=== PATIENT | male | born 1950 | race Caucasian/White ===

== ENCOUNTER 2016-08-03 13:19 | Inpatient (IN) ==
[2016-08-04 05:47] LABS: INR 1.3; Prothrombin Time 13.8 Seconds (9.4-12.1)
[2016-08-04 05:49] LABS: Basophils % 0.6 %; Eosinophils # 0.2 K/mcL (0.0-0.6); Eosinophils % 2.8 %; Hematocrit 36.9 % (37.5-50.1); Hemoglobin 12.9 g/dL (12.9-16.9); Immature Granulocytes % 0.3 % (0-4); Lymphocytes # 1.4 K/mcL (0.6-4.6); Lymphocytes % 20.8 %; Mean Corpuscular Hemoglobin 29.9 pg (28.0-33.3); Mean Corpuscular Volume 85.6 fL (83.0-100.0); Mean Platelet Volume 10.6 fL (9.4-12.4); Monocytes # 0.7 K/mcL (0.0-1.3); Monocytes % 10.2 %; Neutrophils # 4.4 K/mcL (1.6-8.9); Platelet Count 137 K/mcL (140-400); Red Blood Count 4.31 M/mcL (4.19-5.50); Red Cell Distribution Width 12.1 % (11.5-14.5); Segmented Neutrophils % 65.3 %
[2016-08-04 06:01] LABS: BUN/Creatinine Ratio 17 (6-26); Blood Urea Nitrogen 13 mg/dL (8-26); Calcium 9.6 mg/dL (8.6-10.8); Carbon Dioxide 19 mEq/L (19-29); Chloride 107 mEq/L (98-109); Glucose 97 mg/dL (70-99); Osmolality,Calculated 288 (280-300); Potassium 4.1 mEq/L (3.5-4.5); Sodium 139 mEq/L (136-145); eGFR For African Americans > 60 (> 60); eGFR For Non-African Americans > 60 (> 60)
[2016-08-04] MEDS: Lisinopril-HCTZ 20-12.5mg TABLET PO SCH (09:23)
--- NOTE | 2016-08-04 13:33 | Internal Med History&Physical ---
Date of Encounter: 08/04/16 Time of Encounter: 13:30 Assessment and Plan (1) CVA (cerebral vascular accident) Current visit: Yes Status: Acute Patient small right hemorrhage 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 (2) Hypertension Current visit: No Status: Chronic Qualifiers: Hypertension type: essential hypertension Qualified Code(s): I10 - Essential (primary) hypertension (3) Hyperlipidemia Current visit: No Status: Acute Noted Qualifiers: Qualified Code(s): E78.5 - Hyperlipidemia, unspecified Internal Medicine - H&P: HPI Chief complaint: Patient was brought here for rehabilitation status post CVA Admitted From: Hospital to Hospital Transfer Plans for Post Hospital Care: Home History of present illness: Mr. Ross is a 66 year old male Patient was walking his dog when he collapsed due to illness of his left side. He fell twice called to his called the squad. He was taken to [facility] where he was evaluated for CVA noted to have some intraparenchymal bleeding transferred to [facility]. He was stabilized there and followed up and transferred here for re- Past Med Surg Social Fam HX - Past Medical History Medical history: hyperlipidemia, hypertension Psychiatric history: no psych history - Past Surgical History Surgical History: IVC Filter - Social History Smoking Status: Former smoker Smokeless Tobacco Status: No Alcohol use: occasionally Drug use: none Internal Medicine - H&P: Meds Atorvastatin Calcium [Lipitor] 20 mg PO DAILY 08/03/16 [History] Cyclobenzaprine [Flexeril] 10 mg PO HS PRN 08/03/16 [History] Lisinopril-HCTZ 20-12.5 [Prinzide 20-12.5] 1 each PO DAILY 08/03/16 [History] Allergies No Known Allergies Allergy (Verified 08/03/16 18:15) All Systems PM: A 10-system review of systems was performed and is negative for pertinent findings except as documented above in the HPI. - Constitutional Vitals: Temp Pulse Resp BP Pulse Ox 98.3 F 120 18 124/80 96 08/04/16 11:48 08/04/16 11:48 08/04/16 11:48 08/04/16 11:48 08/04/16 11:48 General appearance: Present: cooperative, pleasant - Head Head exam: Present: atraumatic, normal inspection, normocephalic - Neck Neck exam general surgery: Present: supple, trachea midline. Absent: lymphadenopathy - Respiratory Respiratory exam: Present: CTAB. Absent: accessory muscle use, rales, rhonchi, wheezes - Cardiovascular Cardiovascular exam: Present: RRR, +S1, +S2. Absent: diastolic murmur, gallop, rubs, systolic murmur Internal Med - H&P Results - Labs CBC & Chem 7: 08/07/16 05:20 08/07/16 05:20 Labs: Short CBC 08/04/16 Range/Units 05:00 WBC 6.8 (4.3-11.1) K/mcL Hgb 12.9 (12.9-16.9) g/dL Hct 36.9 L (37.5-50.1) % Plt Count 137 L (140-400) K/mcL Neutrophils # 4.4 (1.6-8.9) K/mcL BMP 08/04/16 05:00 Sodium 139 Potassium 4.1 Chloride 107 Carbon Dioxide 19 BUN 13 Creatinine 0.75 Glucose 97 Calcium 9.6 Lab is stable
[2016-08-05] MEDS: Lisinopril-HCTZ 20-12.5mg TABLET PO SCH (08:35)
--- NOTE | 2016-08-05 11:40 | Internal Med Progress Note ---
Date of Encounter: 08/05/16 Time of Encounter: 11:38 - Assessment and plan (1) CVA (cerebral vascular accident) Current Visit: Yes Status: Acute Assessment and plan: Left-sided flaccid. PTOT to work on gait, balance, transfer, strength endurance in improving activity of daily living. 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 (2) Hypertension Current Visit: Yes Status: Chronic Qualifiers: Hypertension type: essential hypertension Qualified Code(s): I10 - Essential (primary) hypertension - Time Spent With Patient less than 15 minutes - Subjective Interval history: No new voiced complaint. Saline left-sided flaccid denies shortness of breath. No chest pain. No headache. Mild constipation. Good appetite. - Constitutional Vitals: Temp Pulse Resp BP Pulse Ox 97.6 F 93 18 111/77 95 08/05/16 07:10 08/05/16 07:10 08/05/16 07:10 08/05/16 07:10 08/05/16 07:10 General appearance: Present: cooperative, A&O X 3, pleasant, no acute distress - Respiratory Respiratory exam: Present: CTAB. Absent: accessory muscle use, rales, rhonchi, wheezes - Cardiovascular Cardiovascular exam: Present: RRR, +S1, +S2. Absent: diastolic murmur, gallop, rubs, systolic murmur - GI/Abdominal GI/Abdominal exam: Present: normal bowel sounds, soft, no peritoneal signs. Absent: distended, tenderness - Extremities Exam Extremities exam: Absent: calf tenderness, pedal edema - Neurological Exam Neurological exam: Present: abnormal gait, alert, oriented X3, facial droop Additional comments: Left sided weakness. Both upper and lower extremities Internal Medicine: Result - Labs CBC & Chem 7: 08/04/16 05:00 08/04/16 05:00 - ABG Interpretation ABG results: PT/INR, D-dimer PT 13.8 Seconds (9.4-12.1) H 08/04/16 05:00 Consult Discharge Plan - Plan Referrals: Raz Phillip [Primary Care Provider] -
[2016-08-06] MEDS: Lisinopril-HCTZ 20-12.5mg TABLET PO SCH (09:26)
--- NOTE | 2016-08-06 11:00 | Internal Med Progress Note ---
Date of Encounter: 08/06/16 Time of Encounter: 10:58 - Assessment and plan (1) CVA (cerebral vascular accident) Current Visit: Yes Status: Acute Assessment and plan: Left-sided flaccid. PTOT to work on gait, balance, transfer, strength endurance in improving activity of daily living. 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 (2) Hypertension Current Visit: Yes Status: Chronic Qualifiers: Hypertension type: essential hypertension Qualified Code(s): I10 - Essential (primary) hypertension - Subjective Interval history: No new voiced complaint. Same left-sided flaccid denies shortness of breath. No chest pain. No headache. Mild constipation. Good appetite. - Constitutional Vitals: Temp Pulse Resp BP Pulse Ox 98.7 F 94 16 113/69 96 08/06/16 07:08 08/06/16 07:08 08/06/16 07:08 08/06/16 07:08 08/06/16 07:08 General appearance: Present: cooperative, A&O X 3, pleasant, no acute distress - Respiratory Respiratory exam: Present: CTAB. Absent: accessory muscle use, rales, rhonchi, wheezes - Cardiovascular Cardiovascular exam: Present: RRR, +S1, +S2. Absent: diastolic murmur, gallop, rubs, systolic murmur - GI/Abdominal GI/Abdominal exam: Present: normal bowel sounds, soft, no peritoneal signs. Absent: distended, tenderness - Neurological Exam Additional comments: Left-sided paresis Internal Medicine: Result - Labs CBC & Chem 7: 08/04/16 05:00 08/04/16 05:00 - ABG Interpretation ABG results: PT/INR, D-dimer PT 13.8 Seconds (9.4-12.1) H 08/04/16 05:00 Consult Discharge Plan - Plan Referrals: Raz Phillip [Primary Care Provider] -
[2016-08-07 05:56] LABS: Basophils # 0.1 K/mcL (0.0-0.2); Basophils % 0.7 %; Eosinophils # 0.3 K/mcL (0.0-0.6); Eosinophils % 4.1 %; Hematocrit 36.5 % (37.5-50.1); Hemoglobin 12.6 g/dL (12.9-16.9); Immature Granulocytes % 0.7 % (0-4); Lymphocytes # 1.5 K/mcL (0.6-4.6); Lymphocytes % 22.3 %; Mean Corpuscular HGB Conc 34.5 g/dL (31.6-35.5); Mean Corpuscular Hemoglobin 29.9 pg (28.0-33.3); Mean Corpuscular Volume 86.7 fL (83.0-100.0); Mean Platelet Volume 9.6 fL (9.4-12.4); Monocytes # 0.8 K/mcL (0.0-1.3); Monocytes % 12.1 %; Neutrophils # 4.1 K/mcL (1.6-8.9); Platelet Count 191 K/mcL (140-400); Red Blood Count 4.21 M/mcL (4.19-5.50); Red Cell Distribution Width 12.1 % (11.5-14.5); Segmented Neutrophils % 60.1 %
[2016-08-07 05:57] LABS: BUN/Creatinine Ratio 23 (6-26); Blood Urea Nitrogen 18 mg/dL (8-26); Calcium 9.7 mg/dL (8.6-10.8); Carbon Dioxide 22 mEq/L (19-29); Chloride 104 mEq/L (98-109); Glucose 95 mg/dL (70-99); Osmolality,Calculated 288 (280-300); Potassium 4.6 mEq/L (3.5-4.5); Sodium 138 mEq/L (136-145); eGFR For African Americans > 60 (> 60); eGFR For Non-African Americans > 60 (> 60)
[2016-08-07] MEDS: Lisinopril-HCTZ 20-12.5mg TABLET PO SCH (08:03)
--- NOTE | 2016-08-07 13:29 | Internal Med Progress Note ---
Date of Encounter: 08/07/16 Time of Encounter: 13:27 - Assessment and plan (1) CVA (cerebral vascular accident) Current Visit: Yes Status: Acute Assessment and plan: Patient's here for CVA with left hemiparesis. The staff also thinks there may be some mild cognitive changes 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 (2) Hypertension Current Visit: Yes Status: Chronic Qualifiers: Hypertension type: essential hypertension Qualified Code(s): I10 - Essential (primary) hypertension (3) Hyperlipidemia Current Visit: Yes Status: Acute Assessment and plan: Noted Qualifiers: Qualified Code(s): E78.5 - Hyperlipidemia, unspecified - Time Spent With Patient less than 15 minutes - Subjective Interval history: Patient's working with therapists. Still has left hemiparesis he has finger Brubeck today. So perhaps with time we will get some function back. - Constitutional Vitals: Temp Pulse Resp BP Pulse Ox 97.6 F 97 18 112/76 97 08/07/16 07:22 08/07/16 07:22 08/07/16 07:22 08/07/16 10:31 08/07/16 10:31 General appearance: Present: cooperative, A&O X 3, pleasant, no acute distress - Head Head exam: Present: atraumatic, normal inspection, normocephalic - Neck Neck exam general surgery: Present: supple, trachea midline. Absent: lymphadenopathy - Respiratory Respiratory exam: Present: CTAB. Absent: accessory muscle use, rales, rhonchi, wheezes - Cardiovascular Cardiovascular exam: Present: RRR, +S1, +S2. Absent: diastolic murmur, gallop, rubs, systolic murmur Internal Medicine: Result - Labs CBC & Chem 7: 08/07/16 05:20 08/07/16 05:20 Labs: Short CBC 08/07/16 Range/Units 05:20 WBC 6.9 (4.3-11.1) K/mcL Hgb 12.6 L (12.9-16.9) g/dL Hct 36.5 L (37.5-50.1) % Plt Count 191 (140-400) K/mcL Neutrophils # 4.1 (1.6-8.9) K/mcL BMP 08/07/16 05:20 Sodium 138 Potassium 4.6 H Chloride 104 Carbon Dioxide 22 BUN 18 Creatinine 0.78 Glucose 95 Calcium 9.7 Lab is stable - ABG Interpretation ABG results: PT/INR, D-dimer PT 13.8 Seconds (9.4-12.1) H 08/04/16 05:00 - VTE Documentation of Mechanical Device: Graduated compression elastic hosiery Consult Discharge Plan - Plan Referrals: Raz Phillip [Primary Care Provider] -
[2016-08-08] MEDS: Lisinopril-HCTZ 20-12.5mg TABLET PO SCH (09:00)
--- NOTE | 2016-08-08 14:35 | Internal Med Progress Note ---
Date of Encounter: 08/08/16 Time of Encounter: 14:33 - Assessment and plan (1) CVA (cerebral vascular accident) Current Visit: Yes Status: Acute Assessment and plan: The reason for the admission was a CVA of ischemic nature 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 (2) Hypertension Current Visit: Yes Status: Chronic Assessment and plan: Blood pressure is well controlled Qualifiers: Hypertension type: essential hypertension Qualified Code(s): I10 - Essential (primary) hypertension (3) Hyperlipidemia Current Visit: Yes Status: Acute Qualifiers: Qualified Code(s): E78.5 - Hyperlipidemia, unspecified - Time Spent With Patient less than 15 minutes - Subjective Interval history: Patient's working with therapists. Still has left hemiparesis . Continuing to work with therapy So perhaps with time we will get some function back. - Constitutional Vitals: Temp Pulse Resp BP Pulse Ox 97.7 F 96 16 105/72 95 08/08/16 07:13 08/08/16 07:13 08/08/16 07:13 08/08/16 07:13 08/08/16 07:13 General appearance: Present: cooperative, A&O X 3, pleasant, no acute distress - Head Head exam: Present: atraumatic, normal inspection, normocephalic - Neck Neck exam general surgery: Present: supple, trachea midline. Absent: lymphadenopathy - Cardiovascular Cardiovascular exam: Present: RRR, +S1, +S2. Absent: diastolic murmur, gallop, rubs, systolic murmur Internal Medicine: Result - Labs CBC & Chem 7: 08/07/16 05:20 08/07/16 05:20 Labs: Lab appears to be stated - ABG Interpretation ABG results: PT/INR, D-dimer PT 13.8 Seconds (9.4-12.1) H 08/04/16 05:00 - VTE Documentation of Mechanical Device: Graduated compression elastic hosiery Consult Discharge Plan - Plan Referrals: Raz Phillip [Primary Care Provider] -
[2016-08-09] MEDS: Lisinopril-HCTZ 20-12.5mg TABLET PO SCH (08:41)
--- NOTE | 2016-08-09 12:28 | Physical Med Progress Note ---
Date of Encounter: 08/09/16 Time of Encounter: 12:20 Physical Medicine-PN: Subj Interval history: PMR PCC note Mr. Ross is Alex for upper body dressing, min -mod A for lower body dressing. He continues to have some increased tone in the left lower limb. Nursing will continue to reposition the left leg in extension to diminish his hamstring contraction. No active movement in the left upper limb. E-stim initiated for left upper limb without any significant carry over. He is doing well cognitively. No deficits. He has a flat affect. He has good coping strategies. He denies any depression. Plan to begin use of malcom walker today. Patient is SBA/CGA for sitting at the edge of mat. Patient lives in a 2 story home, first floor bed bath with 2 step entry. Would recommend contstruction of a ramp. Plan for 4 weeks of intensive PT/OT/ST/TR. NICHOLAS 08/30/16. Will plan a family meeting. - Constitutional Vitals: Vital Signs Temp Pulse Resp BP Pulse Ox 08/09/16 07:07 98.0 F 85 18 113/66 96 08/08/16 19:18 98.0 F 105 16 99/66 95 Intake and Output 08/08/16 08/09/16 08/09/16 23:59 07:59 15:59 Intake Total 200 / 200 520 / 520 Output Total 550 / 550 Balance -350 / -350 520 / 520 Intake: Oral 200 / 200 520 / 520 Output: Urine 550 / 550 Other: Meal Breakfast Percent of Meal Consumed 100% Stool Size Moderate Stool Consistency soft formed Stool Color Brown # Voids 1 # Bowel Movements 1 Physical Medicine-PN: Obj Data - Labs CBC & Chem 7: 08/07/16 05:20 08/07/16 05:20 - ABG Interpretation ABG results: PT/INR, D-dimer PT 13.8 Seconds (9.4-12.1) H 08/04/16 05:00 - VTE Documentation of Mechanical Device: Graduated compression elastic hosiery Consult Discharge Plan - Plan Referrals: Raz Phillip [Primary Care Provider] -
--- NOTE | 2016-08-09 13:41 | Physcial Medicine-Consult Note ---
Date of Encounter: 08/09/16 Time of Encounter: 13:37 Physical Medicine - AP (1) CVA (cerebral vascular accident) Status: Acute Assessment and plan: 1. Mr. Ross will continue with intensive PT/OT/TR. He has no cognitive deficits. We will continue to work on gait, transfers, ADLs and safety. He will require 4 weeks of intensive therapy to address his needs. He has been ambulating well with a malcom walker. We will continue with estim to the left upper limb. Continue with shoulder sling for support of the shoulder joint. Code(s): I63.9 - Cerebral infarction, unspecified SNOMED Code(s): 107849661 Physical Medicine - HPI - Data of Consult Consult date: 08/09/16 Requesting Physician: Daquan Dunn DO Primary Care Provider: Raz Phillip - Consult Narrative Reason for consult: CVA History of present illness: Mr. Ross is a 66 year old male with a past medical history significant for HTN and hyperlipidemia who was walking his dog on 07/28/16 when he developed acute onset of left sided weakness. He subsequently fell, striking his head with possible trauma to the head. He attempted to stand a second time and fell again. Patient was transferred to [facility] where an initial head CT revealed an acute right frontal IPH. MRI of the brain revealed hyperacute intraparenchymal hematoma within the right frontal lobe with surrounding vasogenic edema. He was stabilized and transferred for inpatient rehabilitation for his continued left hemiplegia. CC: Daquan Dunn DO Past Med Surg Social Fam HX - Past Medical History Medical history: hyperlipidemia, hypertension Psychiatric history: no psych history - Past Surgical History Surgical History: IVC Filter - Social History Smoking Status: Former smoker Smokeless Tobacco Status: No Alcohol use: occasionally Drug use: none Current living situation: Home - Independent Activity Level: Independent ambulation, Very active Medications and Allergies Atorvastatin Calcium [Lipitor] 20 mg PO DAILY 08/03/16 [History] Cyclobenzaprine [Flexeril] 10 mg PO HS PRN 08/03/16 [History] Lisinopril-HCTZ 20-12.5 [Prinzide 20-12.5] 1 each PO DAILY 08/03/16 [History] Allergies No Known Allergies Allergy (Verified 08/03/16 18:15) - Constitutional Constitutional: Absent: anorexia, frequent falls - Respiratory Respiratory: Absent: cough, dyspnea, dyspnea on exertion - Gastrointestinal Gastrointestinal: Absent: abdominal pain, dyspepsia - Genitourinary Genitourinary: urinary frequency - Musculoskeletal Musculoskeletal: Present: abnormal gait. Absent: radiating pain into limb - Neurological Neurological: Present: abnormal gait. Absent: headache(s) - Psychiatric Psychiatric: Absent: depression Physical Medicine - Exam - Constitutional Vitals: Temp Pulse Resp BP Pulse Ox 98.0 F 85 18 113/66 96 08/09/16 07:07 08/09/16 07:07 08/09/16 07:07 08/09/16 07:07 08/09/16 07:07 General appearance: average body habitus Exam: Patient is alert and oriented to person, place and date. He is able to follow multistep commands without difficulty. - Respiratory Respiratory exam: Present: CTAB - Cardiovascular Cardiovascular exam: Present: RRR - GI/Abdominal GI/Abdominal exam: Present: normal bowel sounds, soft. Absent: tenderness - Extremities Exam Extremities exam: Present: normal inspection. Absent: calf tenderness - Neurological Exam Additional comments: HEENT exam reveals a left facial droop. Tongue deviates to the right. Upper limb reflexes are 2s. Lower limb reflexes are 2+. Motor strength testing in the right upper and lower limbs are 5/5. Left upper limb motor strength reveals absent shoulder shrug, SA/EF/EE 0/5. HI 3/5. Left lower limb reveals HE 4/5, DE LEÓN 1/5, all other motor strength 0/5. Physical Medicine - Results - Labs CBC & Chem 7: 08/07/16 05:20 08/07/16 05:20 Consult Discharge Plan - Plan Referrals: Raz Phillpi [Primary Care Provider] -
--- NOTE | 2016-08-09 15:31 | Psychological Evaluation ---
Date of Encounter: 08/09/16 Time of Encounter: 11:30 History of Present Illness History of present illness: Mr. Ross is a 66 year old male who reported that while on a walk with his [place] in [place], he noticed he was having problems walking and fell twice. He called his who called the squad. He was taken to a local hospital and found to have an intraparenchymal hemorrhage. He was transferred to [facility] where he was stabilized. He has been admitted to [facility] for inpatient rehabilitation. He was seen on this date to assess his current cognitive and emotional functioning. Past Medical History Medical history: Significant for HTN and hyperlipidemia. - Psychiatric History Additional Psychiatric History: There is no history of psychiatric hospitalization or mental health counseling. There is no history of suicidal ideation or past attempts. There is no family history of psychiatric or mental health disorders. Home Medications and Allergies Atorvastatin Calcium [Lipitor] 20 mg PO DAILY 08/03/16 [History] Cyclobenzaprine [Flexeril] 10 mg PO HS PRN 08/03/16 [History] Lisinopril-HCTZ 20-12.5 [Prinzide 20-12.5] 1 each PO DAILY 08/03/16 [History] Allergies No Known Allergies Allergy (Verified 08/03/16 18:15) Social History - Social History Social History: Mr. Ross and his have been for 44 years. They have two children ( son age 41; daughter age 38). Mr. Ross is retired. He worked in the [employer] field for 38 years. He retired two years ago. 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 During his typical day , he feeds the horses, cleans the stalls, does repairs around the farm and runs errands. For leisure, he enjoys hiking and camping. His social support system consists of his , his children, his friends and relatives. He belongs to a horse club and reported that he enjoys being active. - Tobacco Use Smoking Status: Former smoker - Alcohol Use Alcohol Use: occasionally (There is no history of alcohol abuse or treatment.) Cognitive/Emotional Assessment - Cognitive Ability Additional Findings: Mr. Ross was alert, attentive and fully oriented. His speech was clear, fluent and effective. Thought processes were logical, coherent and goal- directed. There were no signs of delusional ideation or perceptual disturbances. Mr. Ross performed within the normal range on measures of attention/concentration, sentence repetition, confrontational naming, auditory comprehension and simple arithmetic. He also performed within the normal range on measures of verbal reasoning, social judgment and delayed verbal recall. He had no difficulty with encoding, storage or retrieval of new information. - Emotional Status Additional Findings: Mr. Ross was cooperative and friendly. He displayed appropriate eye contact. Affect was restricted and facial expressions were flat. He described his mood as "OK" but presented as somber. He reported "I'm not grumpy" and denied any changes in his emotional control. He denied feeling depressed, anxious or irritable. He acknowledged some concerns about the expected recovery from a stroke and reported that he hopes he can resume his previous level of activity on his farm. Assessment & Plan - Diagnosis (1) Other specified mental disorders due to known physiological condition - Treatment Plan Treatment Plan/Recommendations: Will follow Mr. Ross to address emotional adjustment issues as needed while he is an inpatient at [facility] and will provide educational information regarding stroke recovery and setting realistic expectations. Procedures - Session Time Session Start Time: 11:30 Session Stop Time: 12:00
[2016-08-10] MEDS: Lisinopril-HCTZ 20-12.5mg TABLET PO SCH (08:36)
--- NOTE | 2016-08-10 13:34 | Internal Med Progress Note ---
Date of Encounter: 08/10/16 Time of Encounter: 13:32 - Assessment and plan (1) CVA (cerebral vascular accident) Current Visit: Yes Status: Acute Assessment and plan: Patient's here because of his CVA 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 (2) Hypertension Current Visit: No Status: Chronic Qualifiers: Hypertension type: essential hypertension Qualified Code(s): I10 - Essential (primary) hypertension (3) Hyperlipidemia Current Visit: No Status: Acute Assessment and plan: Noted Qualifiers: Qualified Code(s): E78.5 - Hyperlipidemia, unspecified - Time Spent With Patient less than 15 minutes - Subjective Interval history: Patient's working with therapists. Still has left hemiparesis . Continuing to work with therapy So perhaps with time we will get some function back. - Constitutional Vitals: Temp Pulse Resp BP Pulse Ox 97.6 F 83 16 103/69 98 08/10/16 07:15 08/10/16 07:15 08/10/16 07:15 08/10/16 07:15 08/10/16 07:15 General appearance: Present: cooperative, A&O X 3, pleasant, no acute distress - Head Head exam: Present: atraumatic, normal inspection, normocephalic - Neck Neck exam general surgery: Present: supple, trachea midline. Absent: lymphadenopathy - Respiratory Respiratory exam: Present: CTAB. Absent: accessory muscle use, rales, rhonchi, wheezes - Cardiovascular Cardiovascular exam: Present: RRR, +S1, +S2. Absent: diastolic murmur, gallop, rubs, systolic murmur - GI/Abdominal GI/Abdominal exam: Present: normal bowel sounds, soft, no peritoneal signs. Absent: distended, tenderness Internal Medicine: Result - Labs CBC & Chem 7: 08/07/16 05:20 08/07/16 05:20 Labs: Labs stable - ABG Interpretation ABG results: PT/INR, D-dimer PT 13.8 Seconds (9.4-12.1) H 08/04/16 05:00 - VTE Documentation of Mechanical Device: Graduated compression elastic hosiery Consult Discharge Plan - Plan Referrals: Raz Phillip [Primary Care Provider] -
[2016-08-11] MEDS: Lisinopril-HCTZ 20-12.5mg TABLET PO SCH (08:52)
--- NOTE | 2016-08-11 13:10 | Internal Med Progress Note ---
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 Still has left hemiparesis . Continuing to work with therapy So perhaps with time we will get some function back. - Constitutional Vitals: Temp Pulse Resp BP Pulse Ox 97.9 F 96 16 107/71 94 08/11/16 07:27 08/11/16 07:27 08/11/16 07:27 08/11/16 07:27 08/11/16 07:27 General appearance: Present: cooperative, pleasant - Head Head exam: Present: atraumatic, normal inspection, normocephalic - Neck Neck exam general surgery: Present: supple, trachea midline. Absent: lymphadenopathy - Respiratory Respiratory exam: Present: CTAB. Absent: accessory muscle use, rales, rhonchi, wheezes - Cardiovascular Cardiovascular exam: Present: RRR, +S1, +S2. Absent: diastolic murmur, gallop, rubs, systolic murmur Internal Medicine: Result - Labs CBC & Chem 7: 08/07/16 05:20 08/07/16 05:20 Labs: Labs stable - ABG Interpretation ABG results: PT/INR, D-dimer PT 13.8 Seconds (9.4-12.1) H 08/04/16 05:00 - VTE Documentation of Mechanical Device: Graduated compression elastic hosiery Consult Discharge Plan - Plan Referrals: Raz Phillip [Primary Care Provider] -
[2016-08-12] MEDS: Lisinopril-HCTZ 20-12.5mg TABLET PO SCH (09:30)
--- NOTE | 2016-08-12 14:26 | Internal Med Progress Note ---
Date of Encounter: 08/12/16 Time of Encounter: 14:25 - Assessment and plan (1) CVA (cerebral vascular accident) Current Visit: Yes Status: Acute Assessment and plan: continue with intensive PT/OT/TR. He has no cognitive deficits. We will continue to work on gait, transfers, ADLs and safety. He will require 4 weeks of intensive therapy to address his needs. 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 Dysarthria and dysphasia 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 (2) Hypertension Current Visit: No Status: Chronic Qualifiers: Hypertension type: essential hypertension Qualified Code(s): I10 - Essential (primary) hypertension - Subjective Interval history: States has poor movement with his left upper extremities. Flexeril was helping with the muscle spasm No new voiced complaint. Same left-sided flaccid denies shortness of breath. No chest pain. No headache. Mild constipation. Good appetite. - Constitutional Vitals: Temp Pulse Resp BP Pulse Ox 98.2 F 78 20 100/68 96 08/12/16 06:56 08/12/16 06:56 08/12/16 06:56 08/12/16 06:56 08/12/16 06:56 General appearance: Present: cooperative, A&O X 3, pleasant, no acute distress - Cardiovascular Cardiovascular exam: Present: RRR, +S1, +S2. Absent: diastolic murmur, gallop, rubs, systolic murmur - GI/Abdominal GI/Abdominal exam: Present: normal bowel sounds, soft, no peritoneal signs. Absent: distended, tenderness - Extremities Exam Extremities exam: Present: warm, radial pulses palpable and symetrical. Absent : calf tenderness, cyanotic, pedal edema - Neurological Exam Neurological exam: Present: oriented X3 Additional comments: Left sided flaccid. Internal Medicine: Result - Labs CBC & Chem 7: 08/07/16 05:20 08/07/16 05:20 - ABG Interpretation ABG results: PT/INR, D-dimer PT 13.8 Seconds (9.4-12.1) H 08/04/16 05:00 - VTE Documentation of Mechanical Device: Graduated compression elastic hosiery Consult Discharge Plan - Plan Referrals: Raz Phillip [Primary Care Provider] -
[2016-08-13] MEDS: Lisinopril-HCTZ 20-12.5mg TABLET PO SCH (09:47)
--- NOTE | 2016-08-13 10:17 | Internal Med Progress Note ---
Date of Encounter: 08/13/16 Time of Encounter: 10:14 - Assessment and plan (1) CVA (cerebral vascular accident) Current Visit: Yes Status: Acute Assessment and plan: I initially recommended transferring the patient to [facility] for Doppler studies of his lower extremities but the patient refused to be transferred today. He wants to wait until tomorrow. I explained to him all the risk and possible complication. I get he tells me that he does not want to be transferred for Doppler study. continue with intensive PT/OT/TR. He has no cognitive deficits. We will continue to work on gait, transfers, ADLs and safety. He will require 4 weeks of intensive therapy to address his needs. 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 He tells me that he has chronic swelling of his lower extremities. States has poor movement with his left upper extremities. Flexeril was helping with the muscle spasm No new voiced complaint. Same left-sided flaccid denies shortness of breath. No chest pain. No headache. Mild constipation. Good appetite. - Constitutional Vitals: Temp Pulse Resp BP Pulse Ox 97.2 F L 92 18 112/71 96 08/13/16 07:54 08/13/16 07:54 08/13/16 07:54 08/13/16 07:54 08/13/16 07:54 General appearance: Present: cooperative, A&O X 3, pleasant, no acute distress - Respiratory Respiratory exam: Present: CTAB. Absent: accessory muscle use, rales, rhonchi, wheezes - Cardiovascular Cardiovascular exam: Present: RRR, +S1, +S2. Absent: diastolic murmur, gallop, rubs, systolic murmur - Expanded Lower Extremities Exam Knee exam: Present: swelling (Some mild amount of swelling from the knee down. Temperature is slightly cool to the touch. Some slight bluish coloration of the knee. No calf Tenderness) Lower Leg exam: Present: swelling Internal Medicine: Result - Labs CBC & Chem 7: 08/07/16 05:20 08/07/16 05:20 - ABG Interpretation ABG results: PT/INR, D-dimer PT 13.8 Seconds (9.4-12.1) H 08/04/16 05:00 - VTE Documentation of Mechanical Device: Graduated compression elastic hosiery Consult Discharge Plan - Plan Referrals: Raz Phillip [Primary Care Provider] -
[2016-08-14 06:12] LABS: INR 1.5; Prothrombin Time 16.4 Seconds (9.4-12.1)
[2016-08-14 06:12] LABS: Basophils # 0.1 K/mcL (0.0-0.2); Basophils % 0.8 %; Eosinophils # 0.2 K/mcL (0.0-0.6); Eosinophils % 1.9 %; Hematocrit 36.5 % (37.5-50.1); Hemoglobin 12.4 g/dL (12.9-16.9); Immature Granulocytes % 0.6 % (0-4); Lymphocytes # 1.5 K/mcL (0.6-4.6); Lymphocytes % 19.3 %; Mean Corpuscular Hemoglobin 29.5 pg (28.0-33.3); Mean Corpuscular Volume 86.9 fL (83.0-100.0); Mean Platelet Volume 9.5 fL (9.4-12.4); Monocytes # 0.8 K/mcL (0.0-1.3); Neutrophils # 5.3 K/mcL (1.6-8.9); Platelet Count 236 K/mcL (140-400); Red Cell Distribution Width 12.1 % (11.5-14.5); Segmented Neutrophils % 67.4 %
[2016-08-14 06:15] LABS: BUN/Creatinine Ratio 18 (6-26); Blood Urea Nitrogen 14 mg/dL (8-26); Carbon Dioxide 26 mEq/L (19-29); Chloride 103 mEq/L (98-109); Glucose 96 mg/dL (70-99); Osmolality,Calculated 286 (280-300); Potassium 5.3 mEq/L (3.5-4.5); Sodium 138 mEq/L (136-145); eGFR For African Americans > 60 (> 60); eGFR For Non-African Americans > 60 (> 60)
[2016-08-14] MEDS: Lisinopril-HCTZ 20-12.5mg TABLET PO SCH (08:20)
--- NOTE | 2016-08-14 13:47 | Internal Med Progress Note ---
Date of Encounter: 08/14/16 Time of Encounter: 13:38 - Assessment and plan (1) CVA (cerebral vascular accident) Current Visit: Yes Status: Acute Assessment and plan: Patient's working with PT OT TR etc. 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 (2) Hypertension Current Visit: No Status: Chronic Assessment and plan: Blood pressures were controlled Qualifiers: Hypertension type: essential hypertension Qualified Code(s): I10 - Essential (primary) hypertension (3) Hyperlipidemia Current Visit: No Status: Acute Assessment and plan: Noted Qualifiers: Qualified Code(s): E78.5 - Hyperlipidemia, unspecified - Time Spent With Patient less than 15 minutes - Subjective Interval history: Over the weekend patient was taking a shower when they noted the affected side patient was cold and blue.pt brought back to bed and when placed in supine position the leg patient had a intercranial hemorrhage patient had an intracranial hemorrhage in the form of warmed up. 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 It could only have been donated [place] patient refused to transfer. Therefore this morning the Dopplers were done. It was noted that he had bilateral lower extremity Dopplers. He had totally occluded last left iliac and left common femoral. He had partially occluded femoral vein popliteal vein and peroneal vein. It looked echogenically like it was older clot. While at [facility] pt had a [place] filter placed. Therefore risk of PE was mimimalized. I discussed the case with Dr. Mas vascular consulted and he felt that due to the hemorrhagic stroke the patient was unable to tolerate clot Buster and that he was not a good surgical risk. As long as the clot load did not obstruct a [place] filter cause any permanent ischemia in the extremity that we would not have a surgical alternative. - Constitutional Vitals: Temp Pulse Resp BP Pulse Ox 97.6 F 109 16 107/73 96 08/14/16 06:51 08/14/16 06:51 08/14/16 06:51 08/14/16 06:51 08/14/16 06:51 General appearance: Present: cooperative, A&O X 3, pleasant, no acute distress - Head Head exam: Present: atraumatic, normal inspection, normocephalic - Neck Neck exam general surgery: Present: supple, trachea midline. Absent: lymphadenopathy - Respiratory Respiratory exam: Present: CTAB. Absent: accessory muscle use, rales, rhonchi, wheezes - Cardiovascular Cardiovascular exam: Present: RRR, +S1, +S2. Absent: diastolic murmur, gallop, rubs, systolic murmur Internal Medicine: Result - Labs CBC & Chem 7: 08/14/16 05:40 08/14/16 05:40 Labs: Short CBC 08/14/16 Range/Units 05:40 WBC 7.9 (4.3-11.1) K/mcL Hgb 12.4 L (12.9-16.9) g/dL Hct 36.5 L (37.5-50.1) % Plt Count 236 (140-400) K/mcL Neutrophils # 5.3 (1.6-8.9) K/mcL BMP 08/14/16 05:40 Sodium 138 Potassium 5.3 H Chloride 103 Carbon Dioxide 26 BUN 14 Creatinine 0.80 Glucose 96 Calcium 10.0 Stable - ABG Interpretation ABG results: PT/INR, D-dimer PT 16.4 Seconds (9.4-12.1) H 08/14/16 04:00 - VTE Documentation of Mechanical Device: Graduated compression elastic hosiery Consult Discharge Plan - Plan Referrals: Raz Phillip [Primary Care Provider] -
--- NOTE | 2016-08-14 15:32 | Venous Imaging Report ---
LE Venous Duplex Patient Name:Thiago Ross Order Number:[id number] Procedure Date:08/14/2016 Date:1950Age:66 yrs Gender:Male Location:[facility] Room #: 104B Insurance Claims Clerk:Dahlia Baxter RVT Referring MD:Bobby Flowers MD scrap baler:Raz Phillip MD Reading MD:Erasmo Pozo MD , FACS Primary Indications:increased edema Secondary Indications: Risk Factors Yes/No Hx of CVA Yes Anticoagulants No Hx of DVT Yes IVC filter Yes Impressions: Lower extremity abnormal deep exam: left distal iliac vein, common femoral vein, superficial femoral vein, popliteal vein, and peroneal vein demonstrates chronic thrombosis. Right lower extremity: normal contralateral exam. Recommendations: Critical findings reported to Nurse in person by Dahlia Baxter RVT. Findings Venous Duplex Results: Right: Venous imaging of the lower extremity reveals full patency and normal vessel compressibility of the right common femoral. Doppler signals in the evaluated veins were normal. Left: Venous imaging of the lower extremity reveals full patency and normal vessel compressibility of the left posterior tibial, left great saphenous and left lesser saphenous. Doppler signals in the evaluated veins were normal. There is a chronic occlusive thrombus seen in the left distal iliac. It demonstrates an incompressible vein. Flow was absent and it did not augment. There is a chronic occlusive thrombus seen in the left common femoral. It demonstrates an incompressible vein. Flow was absent and it did not augment. There is a chronic thrombus seen in the left superficial femoral. It demonstrates a partially compressible vein. Flow was phasic and it did augment. There is a chronic thrombus seen in the left popliteal. It demonstrates a partially compressible vein. Flow was continuous and it did augment. There is a chronic occlusive thrombus seen in the left peroneal. It demonstrates an incompressible vein. Flow was absent and it did not augment. There is a chronic thrombus seen in the left saphenofemoral junction. It demonstrates a partially compressible vein. Flow was phasic and it did augment. Prior Study: No prior study available for comparison. Lower Extremity Venous Duplex Side Vein Compress Spontaneous Flow Augment Diameter (cm) Depth (cm) Left Distal Iliac None no Absent no Left Common Femoral None no Absent no Left Superficial Femoral Partial yes Phasic yes Left Popliteal Partial yes Continuous yes Left Posterior Tibial Normal yes Phasic yes Left Peroneal None no Absent no Left Saphenofemoral Junction Partial yes Phasic yes Left Great Saphenous Normal yes Phasic yes Left Lesser Saphenous Normal yes Phasic yes Right Common Femoral Normal yes Phasic yes Updated by Erasmo Pozo MD, FACS on 08/14/2016 3:26:57 PM Erasmo Pozo MD electronically signed on 08/14/2016 3:27:59 PM with status of Final
--- NOTE | 2016-08-14 17:48 | Arterial Study Report ---
LE Arterial Physiologic Study Patient Name:Thiago Ross Order Number:[id number] Procedure Date:08/14/2016 Date:1950Age:66 yrs Gender:Male Lt BP:118 / mmHg Rt.BP:112 / mmHgHeart Rate: Location:[facility] Room #: 104B Olive Pitter:Dahlia Baxter RVT Referring MD:Bobby Flowers MD refuse laborer:Raz Phillip MD Reading MD:Erasmo Pozo MD , FACS Primary Indications:weak pulse, cool extremity Risk Factors Yes/No Hx of CVA Yes Anticoagulants No Hx of DVT Yes IVC filter Yes Impressions: 1) Bilateral lower extremities waveform demonstrates normal hemodynamics. 2) Bilateral Ankle Brachial Index is normal. 3) Overall Impression: Arterial hemodynamics are well maintained at rest. Recommendations: Critical findings reported to Dr Dunn on the rehab nursing floor in person by Dahlia Baxter RVT. Findings LE Arterial Physiologic Exam: PVR: Right: The PVR waveforms are normal in the right ankle. Left: The PVR waveforms are mildly diminished in the left ankle. Prior Study: No prior study available for comparison. Segmental Pressures Side Location Pressure Index Result Right Posterior Tibial 140 1.19 Normal Right Dorsalis Pedis 132 1.12 Normal Left Posterior Tibial 146 1.24 Normal Left Dorsalis Pedis 122 1.03 Normal Ankle Brachial Index Right Systolic Diastolic SARAH Brachial 112 1.19 Dorsalis Pedis 132 1.12 Posterior Tibial 140 1.19 Left Systolic Diastolic SARAH Brachial 118 1.24 Dorsalis Pedis 122 1.03 Posterior Tibial 146 1.24 Updated by Erasmo Pozo MD, FACS on 08/14/2016 5:42:01 PM with Status of Final Erasmo Pozo MD electronically signed on 08/14/2016 5:42:55 PM with status of Final
[2016-08-15] MEDS: Lisinopril-HCTZ 20-12.5mg TABLET PO SCH (08:38)
--- NOTE | 2016-08-15 13:27 | Internal Med Progress Note ---
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 The arterial studies were negative. Patient has had no no more ischemic episodes in the leg. No other complaints - Constitutional Vitals: Temp Pulse Resp BP Pulse Ox 97.8 F 107 14 112/71 95 08/14/16 19:34 08/14/16 19:34 08/14/16 19:34 08/14/16 19:34 08/14/16 19:34 General appearance: Present: cooperative, A&O X 3, pleasant, no acute distress - Head Head exam: Present: atraumatic, normal inspection, normocephalic - Respiratory Respiratory exam: Present: CTAB. Absent: accessory muscle use, rales, rhonchi, wheezes - Cardiovascular Cardiovascular exam: Present: RRR, +S1, +S2. Absent: diastolic murmur, gallop, rubs, systolic murmur Internal Medicine: Result - Labs CBC & Chem 7: 08/14/16 05:40 08/14/16 05:40 Labs: Labs stable - ABG Interpretation ABG results: PT/INR, D-dimer PT 16.4 Seconds (9.4-12.1) H 08/14/16 04:00 - VTE Documentation of Mechanical Device: Graduated compression elastic hosiery Consult Discharge Plan - Plan Referrals: Raz Phillip [Primary Care Provider] -
[2016-08-16] MEDS: Lisinopril-HCTZ 20-12.5mg TABLET PO SCH (08:34)
--- NOTE | 2016-08-16 10:53 | Internal Med Progress Note ---
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 He said was very uncomfortable Sleeping well. I am going to DC the Flexeril try baclofen - Constitutional Vitals: Temp Pulse Resp BP Pulse Ox 98.5 F 120 16 108/72 94 08/16/16 07:00 08/16/16 09:37 08/16/16 07:00 08/16/16 07:00 08/16/16 07:00 General appearance: Present: cooperative, A&O X 3, pleasant, no acute distress - Head Head exam: Present: atraumatic, normal inspection, normocephalic - Neck Neck exam general surgery: Present: supple, trachea midline. Absent: lymphadenopathy - Respiratory Respiratory exam: Present: CTAB. Absent: accessory muscle use, rales, rhonchi, wheezes - Cardiovascular Cardiovascular exam: Present: RRR, +S1, +S2. Absent: diastolic murmur, gallop, rubs, systolic murmur Internal Medicine: Result - Labs CBC & Chem 7: 08/14/16 05:40 08/14/16 05:40 Labs: Lab is stable - ABG Interpretation ABG results: PT/INR, D-dimer PT 16.4 Seconds (9.4-12.1) H 08/14/16 04:00 - VTE Documentation of Mechanical Device: Graduated compression elastic hosiery Consult Discharge Plan - Plan Referrals: Raz Phillip [Primary Care Provider] -
--- NOTE | 2016-08-16 12:21 | Physical Med Progress Note ---
Date of Encounter: 08/16/16 Time of Encounter: 12:17 Assessment and Plan (1) CVA (cerebral vascular accident) Current Visit: Yes Status: Acute 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 Physical Medicine-PN: Subj Interval history: PMR PCC Note Mr. Ross is complaining of increased leg spasms. Currently with multiple DVTs in the left lower limb. He is status post jovany filter placement. No significant return in the left arm or leg. He was started on baclofen for muscle spasms. Patient is suffering from depression. He is getting some return of movement on the left side of his face. Patient doing well cognitively with speech. He has some issues with carry over for techniques for bed mobility and PROM exercises. He does well with wheelchair mobility, he needs cues to attend to left side. - Constitutional Vitals: Vital Signs Temp Pulse Resp BP Pulse Ox 08/16/16 11:39 120 08/16/16 09:37 120 08/16/16 07:00 98.5 F 111 16 108/72 94 08/15/16 18:49 97.4 F L 118 16 107/67 90 Intake and Output 08/15/16 08/16/16 08/16/16 23:59 07:59 15:59 Intake Total 240 / 240 800 / 800 600 / 600 Output Total 200 / 200 825 / 825 Balance 40 / 40 -25 / -25 600 / 600 Intake: Oral 240 / 240 800 / 800 600 / 600 Output: Urine 200 / 200 825 / 825 Other: Meal Dinner Breakfast Percent of Meal Consumed 75% 90% Stool Size Large Stool Consistency soft Stool Color Brown # Voids 1 # Bowel Movements 1 Physical Medicine-PN: Obj Data - Labs CBC & Chem 7: 08/14/16 05:40 08/14/16 05:40 - ABG Interpretation ABG results: PT/INR, D-dimer PT 16.4 Seconds (9.4-12.1) H 08/14/16 04:00 - VTE Documentation of Mechanical Device: Graduated compression elastic hosiery Consult Discharge Plan - Plan Referrals: Raz Phillip [Primary Care Provider] -
[2016-08-16] MEDS: *HR* HYDROcodone/Acet 5/325 mg TABLET PO PRN ×2 (16:33→22:06)
[2016-08-17] MEDS: *HR* HYDROcodone/Acet 5/325 mg TABLET PO PRN ×3 (08:27→21:07)
[2016-08-17] MEDS: Lisinopril-HCTZ 20-12.5mg TABLET PO SCH (08:27)
[2016-08-17] MEDS: Baclofen 10 MG TABLET PO PRN ×2 (10:15→21:07)
--- NOTE | 2016-08-17 13:45 | Internal Med Progress Note ---
Date of Encounter: 08/17/16 Time of Encounter: 13:43 - Assessment and plan (1) CVA (cerebral vascular accident) Current Visit: Yes Status: Acute Assessment and plan: Patient had a CVA with intracerebral bleeding 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 (2) Hypertension Current Visit: No Status: Chronic Assessment and plan: Blood pressure well controlled Qualifiers: Hypertension type: essential hypertension Qualified Code(s): I10 - Essential (primary) hypertension (3) Hyperlipidemia Current Visit: No Status: Acute Assessment and plan: Noted Qualifiers: Qualified Code(s): E78.5 - Hyperlipidemia, unspecified - Time Spent With Patient less than 15 minutes - Subjective Interval history: Since I changed the medicine from Flexeril to baclofen patient states he has muscle spasms are much improved - Constitutional Vitals: Temp Pulse Resp BP Pulse Ox 97.9 F 105 15 113/78 95 08/17/16 07:00 08/17/16 07:00 08/17/16 07:00 08/17/16 07:00 08/17/16 07:00 General appearance: Present: cooperative, A&O X 3, pleasant, no acute distress - Head Head exam: Present: atraumatic, normal inspection, normocephalic - Neck Neck exam general surgery: Present: supple, trachea midline. Absent: lymphadenopathy - Respiratory Respiratory exam: Present: CTAB. Absent: accessory muscle use, rales, rhonchi, wheezes - Cardiovascular Cardiovascular exam: Present: RRR, +S1, +S2. Absent: diastolic murmur, gallop, rubs, systolic murmur Internal Medicine: Result - Labs CBC & Chem 7: 08/14/16 05:40 08/14/16 05:40 Labs: Lab is stable - ABG Interpretation ABG results: PT/INR, D-dimer PT 16.4 Seconds (9.4-12.1) H 08/14/16 04:00 - VTE Documentation of Mechanical Device: Graduated compression elastic hosiery Consult Discharge Plan - Plan Referrals: Raz Phillip [Primary Care Provider] -
[2016-08-18] MEDS: *HR* HYDROcodone/Acet 5/325 mg TABLET PO PRN ×4 (04:11→21:00)
[2016-08-18 05:15] LABS: BUN/Creatinine Ratio 19 (6-26); Blood Urea Nitrogen 14 mg/dL (8-26); Calcium 9.5 mg/dL (8.6-10.8); Carbon Dioxide 23 mEq/L (19-29); Chloride 99 mEq/L (98-109); Glucose 112 mg/dL (70-99); Osmolality,Calculated 277 (280-300); Potassium 4.1 mEq/L (3.5-4.5); Sodium 133 mEq/L (136-145); eGFR For African Americans > 60 (> 60); eGFR For Non-African Americans > 60 (> 60)
[2016-08-18] MEDS: Baclofen 10 MG TABLET PO PRN ×2 (07:44→20:58)
[2016-08-18] MEDS: Lisinopril-HCTZ 20-12.5mg TABLET PO SCH (08:06)
--- NOTE | 2016-08-18 13:56 | Internal Med Progress Note ---
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 (2) Hypertension Current Visit: No Status: Chronic Qualifiers: Hypertension type: essential hypertension Qualified Code(s): I10 - Essential (primary) hypertension (3) Hyperlipidemia Current Visit: No Status: Acute Assessment and plan: Noted Qualifiers: Qualified Code(s): E78.5 - Hyperlipidemia, unspecified - Time Spent With Patient less than 15 minutes - Subjective Interval history: Patient has left groin pain. He is tender to palpation. No skin changes are evident. Left leg course is modestly swollen due to large amount of clot in the common femoral and iliac. He does have distal pulses and the leg is warm. I think that he has a musculoskeletal pull. He is paralyzed on the left side and when he got in [place]. I think to stretch that leg. He states that he has had problems with it for about a year now. I am going to add some Motrin and ice and see if it helps. - Constitutional Vitals: Temp Pulse Resp BP Pulse Ox 98.3 F 112 16 104/73 95 08/18/16 07:00 08/18/16 09:51 08/18/16 07:00 08/18/16 07:00 08/18/16 07:00 General appearance: Present: cooperative, A&O X 3, pleasant, no acute distress - Head Head exam: Present: atraumatic, normal inspection, normocephalic - Neck Neck exam general surgery: Present: supple, trachea midline. Absent: lymphadenopathy - Respiratory Respiratory exam: Present: CTAB. Absent: accessory muscle use, rales, rhonchi, wheezes - Cardiovascular Cardiovascular exam: Present: RRR, +S1, +S2. Absent: diastolic murmur, gallop, rubs, systolic murmur Internal Medicine: Result - Labs CBC & Chem 7: 08/14/16 05:40 08/18/16 04:52 Labs: BMP 08/18/16 04:52 Sodium 133 L Potassium 4.1 Chloride 99 Carbon Dioxide 23 BUN 14 Creatinine 0.72 Glucose 112 H Calcium 9.5 Lab is stable - ABG Interpretation ABG results: PT/INR, D-dimer PT 16.4 Seconds (9.4-12.1) H 08/14/16 04:00 - VTE Documentation of Mechanical Device: Graduated compression elastic hosiery Consult Discharge Plan - Plan Referrals: Raz Phillip [Primary Care Provider] -
[2016-08-18] MEDS: Ibuprofen 800 MG TABLET PO PRN (18:34)
[2016-08-19] MEDS: Ibuprofen 800 MG TABLET PO PRN ×3 (02:47→20:20)
[2016-08-19] MEDS: Lisinopril-HCTZ 20-12.5mg TABLET PO SCH (08:15)
[2016-08-19] MEDS: *HR* HYDROcodone/Acet 5/325 mg TABLET PO PRN ×3 (08:15→21:21)
[2016-08-19] MEDS: Baclofen 10 MG TABLET PO PRN ×2 (15:43→21:21)
[2016-08-20] MEDS: *HR* HYDROcodone/Acet 5/325 mg TABLET PO PRN ×3 (07:42→17:10)
[2016-08-20] MEDS: Lisinopril-HCTZ 20-12.5mg TABLET PO SCH (07:43)
[2016-08-20] MEDS: Baclofen 10 MG TABLET PO PRN ×2 (07:43→17:10)
[2016-08-20] MEDS: Ibuprofen 800 MG TABLET PO PRN ×2 (10:07→19:51)
[2016-08-21] MEDS: *HR* HYDROcodone/Acet 5/325 mg TABLET PO PRN ×3 (00:34→14:09)
[2016-08-21] MEDS: Baclofen 10 MG TABLET PO PRN ×2 (03:21→18:23)
[2016-08-21] MEDS: Ibuprofen 800 MG TABLET PO PRN ×2 (03:25→18:23)
[2016-08-21 05:47] LABS: INR 1.6; Prothrombin Time 17.8 Seconds (9.4-12.1)
[2016-08-21 05:48] LABS: Basophils % 0.6 %; Eosinophils # 0.2 K/mcL (0.0-0.6); Eosinophils % 2.5 %; Hematocrit 30.6 % (37.5-50.1); Hemoglobin 10.6 g/dL (12.9-16.9); Immature Granulocytes % 0.6 % (0-4); Lymphocytes % 15.1 %; Mean Corpuscular HGB Conc 34.6 g/dL (31.6-35.5); Mean Corpuscular Hemoglobin 29.8 pg (28.0-33.3); Mean Platelet Volume 8.9 fL (9.4-12.4); Monocytes # 0.8 K/mcL (0.0-1.3); Monocytes % 12.1 %; Neutrophils # 4.7 K/mcL (1.6-8.9); Platelet Count 321 K/mcL (140-400); Red Blood Count 3.56 M/mcL (4.19-5.50); Red Cell Distribution Width 11.7 % (11.5-14.5); Segmented Neutrophils % 69.1 %
[2016-08-21 05:55] LABS: BUN/Creatinine Ratio 19 (6-26); Blood Urea Nitrogen 14 mg/dL (8-26); Calcium 10.1 mg/dL (8.6-10.8); Carbon Dioxide 23 mEq/L (19-29); Chloride 101 mEq/L (98-109); Glucose 98 mg/dL (70-99); Osmolality,Calculated 282 (280-300); Potassium 4.5 mEq/L (3.5-4.5); Sodium 136 mEq/L (136-145); eGFR For African Americans > 60 (> 60); eGFR For Non-African Americans > 60 (> 60)
[2016-08-21] MEDS: Lisinopril-HCTZ 20-12.5mg TABLET PO SCH (08:03)
--- NOTE | 2016-08-21 14:55 | Internal Med Progress Note ---
Date of Encounter: 08/21/16 Time of Encounter: 14:53 - Assessment and plan (1) CVA (cerebral vascular accident) Current Visit: Yes Status: Acute Assessment and plan: Patient is here for CVA with left hemiparesis. He developed this groin pain. But he also has clots in his left leg in the common femoral and iliac. The pain is improved and going to allow therapy to start doing some passive range of motion and slowly ease back into his regular therapy 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 (2) Hypertension Current Visit: No Status: Chronic Qualifiers: Hypertension type: essential hypertension Qualified Code(s): I10 - Essential (primary) hypertension (3) Hyperlipidemia Current Visit: No Status: Acute Qualifiers: Qualified Code(s): E78.5 - Hyperlipidemia, unspecified - Subjective Interval history: Patient is improved over the weekend. He has less groin pain. He now says it is a 5 where as before was a ten. - Constitutional Vitals: Temp Pulse Resp BP Pulse Ox 98.2 F 83 18 99/70 94 08/21/16 07:20 08/21/16 07:20 08/21/16 07:20 08/21/16 07:20 08/21/16 07:20 General appearance: Present: cooperative, A&O X 3, pleasant, no acute distress - Head Head exam: Present: atraumatic, normal inspection, normocephalic - Neck Neck exam general surgery: Present: supple, trachea midline. Absent: lymphadenopathy - Respiratory Respiratory exam: Present: CTAB. Absent: accessory muscle use, rales, rhonchi, wheezes - Cardiovascular Cardiovascular exam: Present: RRR, +S1, +S2. Absent: diastolic murmur, gallop, rubs, systolic murmur - GI/Abdominal GI/Abdominal exam: Present: normal bowel sounds, soft, no peritoneal signs. Absent: distended, tenderness Internal Medicine: Result - Labs CBC & Chem 7: 08/21/16 05:35 08/21/16 05:35 Labs: Short CBC 08/21/16 Range/Units 05:35 WBC 6.8 (4.3-11.1) K/mcL Hgb 10.6 L D (12.9-16.9) g/dL Hct 30.6 L (37.5-50.1) % Plt Count 321 (140-400) K/mcL Neutrophils # 4.7 (1.6-8.9) K/mcL BMP 08/21/16 05:35 Sodium 136 Potassium 4.5 Chloride 101 Carbon Dioxide 23 BUN 14 Creatinine 0.74 Glucose 98 Calcium 10.1 Lab is stable - ABG Interpretation ABG results: PT/INR, D-dimer PT 17.8 Seconds (9.4-12.1) H 08/21/16 05:35 - VTE Documentation of Mechanical Device: Graduated compression elastic hosiery Consult Discharge Plan - Plan Referrals: Raz Phillip [Primary Care Provider] -
[2016-08-22] MEDS: Baclofen 10 MG TABLET PO PRN ×2 (02:16→20:25)
[2016-08-22] MEDS: Ibuprofen 800 MG TABLET PO PRN ×3 (02:16→18:56)
[2016-08-22] MEDS: Lisinopril-HCTZ 20-12.5mg TABLET PO SCH (08:16)
--- NOTE | 2016-08-22 13:21 | Internal Med Progress Note ---
Date of Encounter: 08/24/16 Time of Encounter: 13:00 - Assessment and plan (1) CVA (cerebral vascular accident) Current Visit: Yes Status: Acute Assessment and plan: Recent CVA with left hemiparesis. The cognitive and speech have resolved. Patient will need a hospital bed upon discharge. He will need this in order to be able to change positions to prevent pain to alleviate symptoms. Patient salving spasms and contractures needs to be able to frequently changing position. Patient's had a CVA with left hemiplegia and requires changes of body positions that cannot be done a regular bed. Also he uses the rails for positioning 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 (2) Hypertension Current Visit: No Status: Chronic Assessment and plan: Blood pressures controlled Qualifiers: Hypertension type: essential hypertension Qualified Code(s): I10 - Essential (primary) hypertension (3) Hyperlipidemia Current Visit: No Status: Acute Assessment and plan: Noted - Time Spent With Patient less than 15 minutes - Subjective Interval history: Agents continued to improve. He looks good participating in mild therapy pain is less then the weekend - Constitutional Vitals: Temp Pulse Resp BP Pulse Ox 97.6 F 91 16 108/70 95 08/22/16 07:05 08/22/16 07:05 08/22/16 07:05 08/22/16 07:05 08/22/16 07:05 General appearance: Present: cooperative, A&O X 3, pleasant, no acute distress - Head Head exam: Present: atraumatic, normal inspection, normocephalic - Neck Neck exam general surgery: Present: supple, trachea midline. Absent: lymphadenopathy - Respiratory Respiratory exam: Present: CTAB. Absent: accessory muscle use, rales, rhonchi, wheezes - Cardiovascular Cardiovascular exam: Present: RRR, +S1, +S2. Absent: diastolic murmur, gallop, rubs, systolic murmur Internal Medicine: Result - Labs CBC & Chem 7: 08/21/16 05:35 08/21/16 05:35 Labs: Patient is starting back into therapy and doing well progress though from a stroke is slow. Still not much movement to the left side. - ABG Interpretation ABG results: PT/INR, D-dimer PT 17.8 Seconds (9.4-12.1) H 08/21/16 05:35 - VTE Documentation of Mechanical Device: Graduated compression elastic hosiery Consult Discharge Plan - Plan Referrals: Raz Phillip [Primary Care Provider] -
[2016-08-22] MEDS: *HR* HYDROcodone/Acet 5/325 mg TABLET PO PRN (20:25)
[2016-08-23] MEDS: Ibuprofen 800 MG TABLET PO PRN ×3 (02:50→20:42)
[2016-08-23] MEDS: Baclofen 10 MG TABLET PO PRN ×2 (02:50→20:42)
[2016-08-23] MEDS: Lisinopril-HCTZ 20-12.5mg TABLET PO SCH (09:26)
--- NOTE | 2016-08-23 14:49 | Internal Med Progress Note ---
Date of Encounter: 08/23/16 Time of Encounter: 14:47 - Assessment and plan (1) CVA (cerebral vascular accident) Current Visit: Yes Status: Acute Assessment and plan: Still has leftover paresis otherwise though is doing well 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 (2) Hypertension Current Visit: No Status: Chronic Assessment and plan: Blood pressures well controlled Qualifiers: Hypertension type: essential hypertension Qualified Code(s): I10 - Essential (primary) hypertension (3) Hyperlipidemia Current Visit: No Status: Acute Assessment and plan: Noted Qualifiers: Qualified Code(s): E78.5 - Hyperlipidemia, unspecified - Time Spent With Patient less than 15 minutes - Subjective Interval history: Dr. Penny Tomlinson from [facility] came down today augustin some blood and received some documents from Mr. Ross's progress and diagnoses. We discussed his care and the fact that the left arm paresis had advanced very much but otherwise patient was doing well. Ori professors called from [facility] and recommended that if the CT showed resolution of the interparenchymal bleed that there probably would be a good idea to go ahead and start Lovenox. This is what I am doing I am currently waiting the results of the CT - Constitutional Vitals: Temp Pulse Resp BP Pulse Ox 97.7 F 85 18 110/72 95 08/23/16 06:56 08/23/16 06:56 08/23/16 06:56 08/23/16 06:56 08/23/16 06:56 General appearance: Present: cooperative, A&O X 3, pleasant, no acute distress - Head Head exam: Present: atraumatic, normal inspection, normocephalic - Neck Neck exam general surgery: Present: supple, trachea midline. Absent: lymphadenopathy - Respiratory Respiratory exam: Present: CTAB. Absent: accessory muscle use, rales, rhonchi, wheezes - Cardiovascular Cardiovascular exam: Present: RRR, +S1, +S2. Absent: diastolic murmur, gallop, rubs, systolic murmur Internal Medicine: Result - Labs CBC & Chem 7: 08/21/16 05:35 08/21/16 05:35 Labs: Labs stable - ABG Interpretation ABG results: PT/INR, D-dimer PT 17.8 Seconds (9.4-12.1) H 08/21/16 05:35 - VTE Documentation of Mechanical Device: Graduated compression elastic hosiery Consult Discharge Plan - Plan Referrals: Raz Phillip [Primary Care Provider] -
[2016-08-23] MEDS: *HR* Enoxaparin 60 MG/0.6 ML SYRINGE SQ SCH (17:54)
[2016-08-23] MEDS ORDERED: *HR* Enoxaparin 40 MG/0.4 ML SYRINGE SQ SCH (18:00)
[2016-08-24] MEDS: Ibuprofen 800 MG TABLET PO PRN ×2 (04:23→16:19)
[2016-08-24] MEDS: Baclofen 10 MG TABLET PO PRN ×3 (04:23→19:50)
[2016-08-24] MEDS ORDERED: *HR* Enoxaparin 60 MG/0.6 ML SYRINGE SQ SCH (06:00)
[2016-08-24] MEDS: *HR* HYDROcodone/Acet 5/325 mg TABLET PO PRN (09:14)
[2016-08-24] MEDS: Lisinopril-HCTZ 20-12.5mg TABLET PO SCH (09:14)
--- NOTE | 2016-08-24 12:50 | Internal Med Progress Note ---
Date of Encounter: 08/24/16 Time of Encounter: 12:48 - Assessment and plan (1) CVA (cerebral vascular accident) Current Visit: Yes Status: Acute Assessment and plan: Patient had an intracerebral hemorrhage which has left him with left hemiparesis. 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 (2) Hypertension Current Visit: No Status: Chronic Assessment and plan: Her pressures well controlled Qualifiers: Hypertension type: essential hypertension Qualified Code(s): I10 - Essential (primary) hypertension (3) Hyperlipidemia Current Visit: No Status: Acute Assessment and plan: Noted Qualifiers: Qualified Code(s): E78.5 - Hyperlipidemia, unspecified - Time Spent With Patient less than 15 minutes - Subjective Interval history: Only complaint from the patient is not sleeping well. I am going slightly adjust his Ambien. - Constitutional Vitals: Temp Pulse Resp BP Pulse Ox 98.9 F 88 18 105/68 94 08/24/16 06:50 08/24/16 06:50 08/24/16 06:50 08/24/16 06:50 08/24/16 06:50 General appearance: Present: cooperative, A&O X 3, pleasant, no acute distress - Head Head exam: Present: atraumatic, normal inspection, normocephalic - Neck Neck exam general surgery: Present: supple, trachea midline. Absent: lymphadenopathy - Respiratory Respiratory exam: Present: CTAB. Absent: accessory muscle use, rales, rhonchi, wheezes - Cardiovascular Cardiovascular exam: Present: RRR, +S1, +S2. Absent: diastolic murmur, gallop, rubs, systolic murmur Internal Medicine: Result - Labs CBC & Chem 7: 08/21/16 05:35 08/21/16 05:35 Labs: Lab is stable - ABG Interpretation ABG results: PT/INR, D-dimer PT 17.8 Seconds (9.4-12.1) H 08/21/16 05:35 - Impressions Impressions Head CT 08/23/16 13:32 IMPRESSION: Interval improvement in appearance and partial resolution of now subacute right frontal lobe intraparenchymal hemorrhage with persistent vasogenic edema within the right frontoparietal white matter, though no significant mass effect or midline shift. No new focus of acute intracranial hemorrhage is identified. D/ / 08/23/2016 15:19:53 Sim Huddleston MD / haile Interpreting Provider: Sim Huddleston MD - VTE Documentation of Mechanical Device: Graduated compression elastic hosiery Consult Discharge Plan - Plan Referrals: Raz Phillip [Primary Care Provider] -
[2016-08-24] MEDS: *HR* Enoxaparin 60 MG/0.6 ML SYRINGE SQ SCH (18:25)
[2016-08-25] MEDS: Ibuprofen 800 MG TABLET PO PRN ×3 (01:13→16:19)
[2016-08-25] MEDS: Baclofen 10 MG TABLET PO PRN (05:47)
[2016-08-25] MEDS: Lisinopril-HCTZ 20-12.5mg TABLET PO SCH (08:38)
--- NOTE | 2016-08-25 13:24 | Internal Med Progress Note ---
Date of Encounter: 08/25/16 Time of Encounter: 13:22 - Assessment and plan (1) CVA (cerebral vascular accident) Current Visit: Yes Status: Acute Assessment and plan: Patient has CVA. He also had intracerebral bleed. CAT scan that I did 2 days ago showed significant improvement in the interval. And so I think were safe with Lovenox 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 (2) Hypertension Current Visit: No Status: Chronic Assessment and plan: Blood pressure is well controlled Qualifiers: Hypertension type: essential hypertension Qualified Code(s): I10 - Essential (primary) hypertension (3) Hyperlipidemia Current Visit: No Status: Acute Assessment and plan: Noted Qualifiers: Hyperlipidemia type: unspecified Qualified Code(s): E78.5 - Hyperlipidemia , unspecified - Time Spent With Patient less than 15 minutes - Subjective Interval history: Patient's actually doing better. Less complaints of pain and problems with sleeping. - Constitutional Vitals: Temp Pulse Resp BP Pulse Ox 98.4 F 75 18 117/74 95 08/25/16 07:05 08/25/16 07:05 08/25/16 07:05 08/25/16 07:05 08/25/16 07:05 General appearance: Present: cooperative, A&O X 3, pleasant, no acute distress - Head Head exam: Present: atraumatic, normal inspection, normocephalic - Neck Neck exam general surgery: Present: supple, trachea midline. Absent: lymphadenopathy - Respiratory Respiratory exam: Present: CTAB. Absent: accessory muscle use, rales, rhonchi, wheezes - Cardiovascular Cardiovascular exam: Present: RRR, +S1, +S2. Absent: diastolic murmur, gallop, rubs, systolic murmur Internal Medicine: Result - Labs CBC & Chem 7: 08/21/16 05:35 08/21/16 05:35 Labs: Lab is stable - ABG Interpretation ABG results: PT/INR, D-dimer PT 17.8 Seconds (9.4-12.1) H 08/21/16 05:35 - VTE Documentation of Mechanical Device: Graduated compression elastic hosiery Consult Discharge Plan - Plan Referrals: Raz Phillip [Primary Care Provider] -
[2016-08-25] MEDS: *HR* Enoxaparin 60 MG/0.6 ML SYRINGE SQ SCH (17:59)
[2016-08-26] MEDS: Ibuprofen 800 MG TABLET PO PRN ×3 (00:14→21:23)
[2016-08-26] MEDS: Baclofen 10 MG TABLET PO PRN ×3 (06:20→21:23)
[2016-08-26] MEDS: Lisinopril-HCTZ 20-12.5mg TABLET PO SCH (08:59)
[2016-08-26] MEDS: *HR* Enoxaparin 60 MG/0.6 ML SYRINGE SQ SCH (18:20)
--- NOTE | 2016-08-26 19:12 | Internal Med Progress Note ---
Date of Encounter: 08/26/16 Time of Encounter: 19:09 - Assessment and plan (1) CVA (cerebral vascular accident) Current Visit: Yes Status: Acute Assessment and plan: Currently with multiple DVTs in the left lower limb. He is status post jovany filter placement. No significant return in the left arm or leg. He was started on baclofen for muscle spasms. Patient is suffering from depression. He is getting some return of movement on the left side of his face. Patient doing well cognitively with speech. He has some issues with carry over for techniques for bed mobility and PROM exercises. He does well with wheelchair mobility, he needs cues to attend to left side 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 (2) Hypertension Current Visit: No Status: Chronic Qualifiers: Hypertension type: essential hypertension Qualified Code(s): I10 - Essential (primary) hypertension - Subjective Interval history: No new complaint. States that getting more movement on the left upper extremities. Still has some leg spasm. No shortness of breath. No chest pain. - Constitutional Vitals: Temp Pulse Resp BP Pulse Ox 97.2 F L 85 16 146/71 96 08/26/16 07:30 08/26/16 07:30 08/26/16 07:30 08/26/16 07:30 08/26/16 07:30 General appearance: Present: cooperative, A&O X 3, pleasant, no acute distress - Cardiovascular Cardiovascular exam: Present: RRR, +S1, +S2. Absent: diastolic murmur, gallop, rubs, systolic murmur - GI/Abdominal GI/Abdominal exam: Present: normal bowel sounds, soft, no peritoneal signs. Absent: distended, tenderness - Extremities Exam Extremities exam: Present: warm, radial pulses palpable and symetrical. Absent : calf tenderness, cyanotic, pedal edema - Neurological Exam Additional comments: Left leg still flaccid. Able to move finger and rotate wrist. Internal Medicine: Result - Labs CBC & Chem 7: 08/21/16 05:35 08/21/16 05:35 - ABG Interpretation ABG results: PT/INR, D-dimer PT 17.8 Seconds (9.4-12.1) H 05/15/17 05:35 - VTE Documentation of Mechanical Device: Graduated compression elastic hosiery Consult Discharge Plan - Plan Referrals: Raz Phillip [Primary Care Provider] -
[2016-08-27] MEDS: Ibuprofen 800 MG TABLET PO PRN ×3 (04:58→21:17)
[2016-08-27] MEDS: Baclofen 10 MG TABLET PO PRN ×2 (04:58→21:17)
[2016-08-27] MEDS: Lisinopril-HCTZ 20-12.5mg TABLET PO SCH (08:12)
--- NOTE | 2016-08-27 09:18 | Internal Med Progress Note ---
Date of Encounter: 08/27/16 Time of Encounter: 09:18 - Assessment and plan (1) CVA (cerebral vascular accident) Current Visit: Yes Status: Acute Assessment and plan: Currently with multiple DVTs in the left lower limb. He is status post jovany filter placement. No significant return in the left arm or leg. He was started on baclofen for muscle spasms. Patient is suffering from depression. He is getting some return of movement on the left side of his face. Patient doing well cognitively with speech. He has some issues with carry over for techniques for bed mobility and PROM exercises. He does well with wheelchair mobility, he needs cues to attend to left side 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 (2) Hypertension Current Visit: No Status: Chronic Assessment and plan: Blood pressure is well controlled Qualifiers: Hypertension type: essential hypertension Qualified Code(s): I10 - Essential (primary) hypertension - Subjective Interval history: No new complaint. States that getting more movement on the left upper extremities. Still has some leg spasm. No shortness of breath. No chest pain. - Constitutional Vitals: Temp Pulse Resp BP Pulse Ox 97.8 F 77 18 119/77 96 08/27/16 08:32 08/27/16 08:32 08/27/16 08:32 08/27/16 08:32 08/27/16 08:32 General appearance: Present: cooperative, A&O X 3, pleasant, no acute distress - Respiratory Respiratory exam: Present: CTAB. Absent: accessory muscle use, rales, rhonchi, wheezes - GI/Abdominal GI/Abdominal exam: Present: normal bowel sounds, soft, no peritoneal signs. Absent: distended, tenderness Internal Medicine: Result - Labs CBC & Chem 7: 08/21/16 05:35 08/21/16 05:35 - ABG Interpretation ABG results: PT/INR, D-dimer PT 17.8 Seconds (9.4-12.1) H 08/21/16 05:35 - VTE Documentation of Mechanical Device: Graduated compression elastic hosiery Consult Discharge Plan - Plan Referrals: Raz Phillip [Primary Care Provider] -
[2016-08-27] MEDS: *HR* Enoxaparin 60 MG/0.6 ML SYRINGE SQ SCH (17:50)
[2016-08-28 05:17] LABS: INR 1.5; Prothrombin Time 16.3 Seconds (9.4-12.1)
[2016-08-28 05:18] LABS: Basophils # 0.1 K/mcL (0.0-0.2); Basophils % 0.8 %; Eosinophils # 0.2 K/mcL (0.0-0.6); Hematocrit 32.5 % (37.5-50.1); Hemoglobin 11.1 g/dL (12.9-16.9); Immature Granulocytes % 0.8 % (0-4); Lymphocytes # 1.6 K/mcL (0.6-4.6); Lymphocytes % 26.7 %; Mean Corpuscular HGB Conc 34.2 g/dL (31.6-35.5); Mean Corpuscular Hemoglobin 29.4 pg (28.0-33.3); Mean Corpuscular Volume 86.2 fL (83.0-100.0); Mean Platelet Volume 8.9 fL (9.4-12.4); Monocytes # 0.6 K/mcL (0.0-1.3); Monocytes % 10.1 %; Neutrophils # 3.5 K/mcL (1.6-8.9); Platelet Count 403 K/mcL (140-400); Red Blood Count 3.77 M/mcL (4.19-5.50); Red Cell Distribution Width 11.7 % (11.5-14.5); Segmented Neutrophils % 58.6 %
[2016-08-28] MEDS: Ibuprofen 800 MG TABLET PO PRN ×3 (05:20→23:39)
[2016-08-28] MEDS: Baclofen 10 MG TABLET PO PRN ×3 (05:20→23:39)
[2016-08-28 05:27] LABS: BUN/Creatinine Ratio 19 (6-26); Blood Urea Nitrogen 14 mg/dL (8-26); Calcium 9.6 mg/dL (8.6-10.8); Carbon Dioxide 24 mEq/L (19-29); Chloride 105 mEq/L (98-109); Glucose 89 mg/dL (70-99); Osmolality,Calculated 286 (280-300); Potassium 4.3 mEq/L (3.5-4.5); Sodium 138 mEq/L (136-145); eGFR For African Americans > 60 (> 60); eGFR For Non-African Americans > 60 (> 60)
[2016-08-28] MEDS: Lisinopril-HCTZ 20-12.5mg TABLET PO SCH (08:53)
--- NOTE | 2016-08-28 10:10 | Internal Med Progress Note ---
Date of Encounter: 08/28/16 Time of Encounter: 10:09 - Assessment and plan (1) CVA (cerebral vascular accident) Current Visit: Yes Status: Acute Assessment and plan: Currently with multiple DVTs in the left lower limb. He is status post jovany filter placement. No significant return in the left arm or leg. He was started on baclofen for muscle spasms. Patient is suffering from depression. He is getting some return of movement on the left side of his face. Patient doing well cognitively with speech. He has some issues with carry over for techniques for bed mobility and PROM exercises. He does well with wheelchair mobility, he needs cues to attend to left side 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 (2) Hypertension Current Visit: No Status: Chronic Assessment and plan: Blood pressure is well controlled Qualifiers: Hypertension type: essential hypertension Qualified Code(s): I10 - Essential (primary) hypertension - Subjective Interval history: . X-ray was negative for any acute abnormality No new complaint. States that getting more movement on the left upper extremities. Still has some leg spasm. No shortness of breath. No chest pain. - Constitutional Vitals: Temp Pulse Resp BP Pulse Ox 98.1 F 82 17 126/70 95 08/28/16 07:00 08/28/16 07:00 08/28/16 07:00 08/28/16 07:00 08/28/16 07:00 General appearance: Present: cooperative, A&O X 3, pleasant, no acute distress - Respiratory Respiratory exam: Present: CTAB. Absent: accessory muscle use, rales, rhonchi, wheezes - Cardiovascular Cardiovascular exam: Present: RRR, +S1, +S2. Absent: diastolic murmur, gallop, rubs, systolic murmur - GI/Abdominal GI/Abdominal exam: Present: normal bowel sounds, soft, no peritoneal signs. Absent: distended, tenderness - Expanded Upper Extremities Exam Shoulder exam: Present: crepitus, tenderness, tenderness over AC joint. Absent : deformity - Neurological Exam Neurological exam: Present: abnormal gait, oriented X3. Absent: speech deficit Additional comments: Able to do some pronation and supination of the left upper extremities. Internal Medicine: Result - Labs CBC & Chem 7: 08/28/16 05:00 08/28/16 05:00 Labs: Short CBC 08/28/16 Range/Units 05:00 WBC 6.0 (4.3-11.1) K/mcL Hgb 11.1 L (12.9-16.9) g/dL Hct 32.5 L (37.5-50.1) % Plt Count 403 H (140-400) K/mcL Neutrophils # 3.5 (1.6-8.9) K/mcL BMP 08/28/16 05:00 Sodium 138 Potassium 4.3 Chloride 105 Carbon Dioxide 24 BUN 14 Creatinine 0.72 Glucose 89 Calcium 9.6 - ABG Interpretation ABG results: PT/INR, D-dimer PT 16.3 Seconds (9.4-12.1) H 08/28/16 05:00 - Impressions Impressions Shoulder X-Ray 08/27/16 14:29 IMPRESSION: No acute bony abnormality. D/ / Dianna Brown Cha, MD / Dianna Brown Cha, MD Interpreting Provider: Dianna Brown Cha, MD - VTE Documentation of Mechanical Device: Graduated compression elastic hosiery Consult Discharge Plan - Plan Referrals: Raz Phillip [Primary Care Provider] -
[2016-08-28] MEDS: *HR* Enoxaparin 60 MG/0.6 ML SYRINGE SQ SCH (18:32)
[2016-08-29 07:41] VITALS: BP 101/66
[2016-08-29] MEDS: Ibuprofen 800 MG TABLET PO PRN (08:10)
[2016-08-29] MEDS: Lisinopril-HCTZ 20-12.5mg TABLET PO SCH (08:10)
[2016-08-29] MEDS: Baclofen 10 MG TABLET PO PRN (08:10)
--- NOTE | 2016-08-29 11:02 | Discharge Summary ---
Date of Encounter: 08/29/16 Time of Encounter: 11:00 - Discharge Diagnosis (1) CVA (cerebral vascular accident) Priority: Primary Status: Acute 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 (2) Hypertension Priority: Secondary Status: Chronic Qualifiers: Hypertension type: essential hypertension Qualified Code(s): I10 - Essential (primary) hypertension (3) Hyperlipidemia Priority: Secondary Status: Acute Qualifiers: Hyperlipidemia type: unspecified Qualified Code(s): E78.5 - Hyperlipidemia , unspecified - Discharge Medications Home Medications: Atorvastatin Calcium [Lipitor] 20 mg PO DAILY 08/03/16 [History] Cyclobenzaprine [Flexeril] 10 mg PO HS PRN 08/03/16 [History] Lisinopril-HCTZ 20-12.5 [Prinzide 20-12.5] 1 each PO DAILY 08/03/16 [History] Allergies/Adverse Reactions: Allergies No Known Allergies Allergy (Verified 08/03/16 18:15) Date of admission: 08/03/16 17:30 Primary care physician: Raz Phillip Consults: 08/03/16 18:59 Consult to Occupational Therapy [CONS] Routine Comment: rehab Consult to Physical Therapy [CONS] Routine Comment: rehab Consult to Recreational Therapy [CONS] Routine Comment: Consult to Radiology Special Procedure Tech [CONS] Routine Reason for SW Consult: Rehab 08/04/16 14:29 Consult to Speech Therapy [CONS] Routine Comment: Evaluate, develop and implement POC Reason for Consult: CVA Time Notified: 14:30 Call Completed: Yes 08/09/16 16:29 Consult to Physician [CONS] Routine Consulting Provider: Angie Coffey Reason for Consult: flat effect Call Completed: Yes 08/21/16 14:55 PT [Consult to Physical Therapy] [CONS] Routine Comment: start light ROM and PT Reason for Consult: lt hemiparesis Discharging clinician: Daquan Dunn Anticipated date of discharge: 08/29/16 - Patient Status Disposition: Home Health Service Condition: Fair Functional capacity at discharge: wheelchair bound - Discharge Instructions Instructions: Enoxaparin (Injection), Hemorrhagic Stroke (DC), Chronic Hypertension (DC) Follow Up With: samantha jessica neuro [Other] - 09/01/16 9:20 am (Arrive at 9:00 am for mri of brain w +w/o contrast. Appt with Dr. Abbasi at 10:25) Raz Phillip [Primary Care Provider] - 09/06/16 2:15 pm - Diet and Activity Activity: as per physical therapy Diet: advance to your usual diet Interval History: Patient was transferred here after having intracerebral bleed and subsequent stroke with left hemiparesis. Hospital course: Mr. Ross is a 66 year old male Patient is some dysphagia and dysphonia have improved considerably. He still has left-sided weakness. - Time Spent with Patient Total time spent providing and/or coordinating discharge services: Less than 30 minutes - Constitutional Vitals: Temp Pulse Resp BP Pulse Ox 98.1 F 82 18 101/66 95 08/29/16 07:41 08/29/16 07:41 08/29/16 07:41 08/29/16 07:41 08/29/16 07:41 General appearance: Present: cooperative, A&O X 3, pleasant, no acute distress - Head Head exam: Present: atraumatic, normocephalic - Neck Neck exam general surgery: Present: supple, trachea midline. Absent: lymphadenopathy - Respiratory Respiratory exam: Present: CTAB. Absent: accessory muscle use, rales, rhonchi, wheezes - Cardiovascular Cardiovascular exam: Present: RRR, +S1, +S2. Absent: diastolic murmur, gallop, rubs, systolic murmur - VTE Documentation of Mechanical Device: Graduated compression elastic hosiery
--- NOTE | 2016-08-29 11:09 | Physician Discharge Referral ---
Home Health/Hosp Referral Info Transfer to: Home Health Provider in Charge Post Discharge: PCP - Diagnosis (1) CVA (cerebral vascular accident) Priority: Primary Status: Acute (2) Hypertension Priority: Secondary Status: Chronic (3) Hyperlipidemia Priority: Secondary Status: Acute - Respiratory Orders Smoking Cessation: Smoking cessation has been advised. For more information, call the [place] Tobacco Quit Line at 8-138-GAHG-NOW. - Diet/Nutrition Diet/Nutrition Orders: Regular - Activity Activity Orders: Chair - Services Needed Following services are medically necessary services: Nursing, Physical Therapy, Occupational Therapy - Transfer Medications Home Medications: Atorvastatin Calcium [Lipitor] 20 mg PO DAILY 08/03/16 [History] Cyclobenzaprine [Flexeril] 10 mg PO HS PRN 08/03/16 [History] Lisinopril-HCTZ 20-12.5 [Prinzide 20-12.5] 1 each PO DAILY 08/03/16 [History] Allergies/Adverse Reactions: Allergies No Known Allergies Allergy (Verified 08/03/16 18:15) Certification: Further, I certify that my clinical findings support that this patient is homebound (i.e. absences from home require considerable and taxing effort and are for medical reasons or scientology services or infrequently or short duration when for other reasons) because: Homebound Reason: Patient requires assistance of a person or device to safely leave home Attestation: My signature below is to certify that this patient is under my care and that I, or nurse practitioner, or a physician's purchasing assistant working with me, has a face-to -face encounter with this patient.
== END 2016-08-29 12:15 | disposition home health service (06) | DRG 56 ==
LOC: INPGRE 17:30
PROVIDERS: ADMIT Internal Medicine; ATTEND Internal Medicine